=== PATIENT | male | born 1995 | race Caucasian/White ===

== ENCOUNTER → 2018-04-20 | Outpatient (CLI) | payer OTHER ==
[~2018-04-20] MED LIST: NOHOMEMEDICATIONS
--- NOTE | 2018-04-27 23:21 | SLEEP ---
[address] [address] SLEEP STUDY REPORT Name: KRISTEN OLSON Room: [facility] Mal#: [id number] Admission: 04/20/18 Attend Phys: Mag Bradley DO Discharge: Date of : 89 Report #: [id number] THIS REPORT FOR: //name// CC: Ronald Bradley DO This study has been reviewed in its entirety by a board certified sleep specialist DATE OF SERVICE: 04/20/2018 LOCATION: [facility]. ATTENDING PHYSICIAN: Dr. Mag Bradley. The patient is a 23-year-old who weighs 275 pounds and is 6 feet 2 inches tall. The patient underwent home sleep study performed via [facility] to rule out obstructive sleep apnea. The total recording time was 455 minutes. During the night study the patient had 8 obstructive apneas, no mixed or central apneas and 7 hypopneas. The patient's apnea-hypopnea index for the entire night was only 2 per hour with a supine index of 2 per hour as well. Review of nocturnal oximetry study revealed an average oxygen saturation of 93% with lowest of 83%, 2.9 minutes were spent at an oxygen saturation of less than 90%. EKG monitoring revealed mean heart rate of 73 beats per minute. IMPRESSION: 1. No clinically significant sleep disordered breathing. The patient's apnea-hypopnea index for the night was 2 per hour. 2. No clinically significant nocturnal hypoxia. RECOMMENDATIONS: 1. The patient does not qualify for CPAP initiation. 2. Weight loss is advised. 3. Avoid RECON[employer] DENTIST depressants. <ELECTRONICALLY SIGNED> By: Jay Riddle MD 04/27/18 [id number] Jade Riddle MD /nt
== END ==
LOC: M.SLEEPLAB 04-13 21:00
DX: F51.01 Primary insomnia (principal); R06.83 Snoring